=== PATIENT | female | born 1960 | race Caucasian/White ===

== ENCOUNTER 2019-11-22 09:04 | Inpatient (IN) | payer SELFPAY ==
[~2019-11-22] VITALS: Ht 175.3 cm; Wt 121.6 kg
--- NOTE | 2019-11-22 09:23 | PHYS DOC ---
Past History Past Medical History: COPD Smoking: Cigarettes, Less than 1pk/day Adult General Chief Complaint Chief Complaint: DYSPNEA/RESPIRATOY DISTRESS [facility] HPI Patient is a 59 see her old female presented to ER today for evaluation of 2 day history of cough, fever, chills, headache, trouble breathing. She is a smoker, she has history of COPD and hypertension. She is not on any oxygen at home. Patient denies any history of heart disease, no history of diabetes. She denies any abdominal pain, no nausea vomiting. aLL OTHER ros IS NEGATIVE UNLESS OTHERWISE NOTED IN hpi Review of Systems Review of Systems See above Physical Exam Physical Exam See above Constitutional: Well developed, well nourished, no acute distress, non-toxic appearance. [] HENT: Normocephalic, atraumatic, bilateral external ears normal, oropharynx moist, no oral exudates, NASAL NARE WITH CLEAR DISCHARGE, ERYTHEMA. Eyes: PERRLA, EOMI, conjunctiva normal, no discharge. [] Neck: Normal range of motion, no tenderness, supple, no stridor. [] Cardiovascular: Tachycardia, regular rhythm, no murmur [] Lungs & Thorax: DIFFUSE WHEEZING IN ALL LUNG JOSEPH, NO RESPIRATORY DISTRESS. Abdomen: Bowel sounds normal, soft, no tenderness, no masses, no pulsatile masses. [] Skin: Warm, dry, no erythema, no rash. [] Back: No tenderness, no CVA tenderness. [] Extremities: No tenderness, no cyanosis, no clubbing, ROM intact, no edema. [] Neurologic: Alert and oriented X 3, normal motor function, normal sensory function, no focal deficits noted. [] Psychologic: Affect normal, judgement normal, mood normal. [] EKG EKG EKG WAS READ BY THIS PHYSICIAN AT 928, RATE OF 101, SINUS TACHYCARDIA, NO STEMI. [] Radiology/Procedures Radiology/Procedures [][address] [address] IMAGING REPORT Signed PATIENT: VAL RAMIREZ ACCOUNT: [id number] : 1960 LOCATION: ER AGE: 59 SEX: F EXAM STATUS: REG ER ORD. PHYSICIAN: DARIUS ESCOBAR DO REASON: cough, fever, soa PROCEDURE: CHEST PA & LATERAL CHEST PA LATERAL History: Cough, fever, shortness of breath Comparison: None. Findings: Frontal and lateral views of chest were obtained. The cardiomediastinal silhouette is normal. Pulmonary vasculature is normal. The lungs are clear. No pleural effusion or pneumothorax is seen. There is no acute bone abnormality. IMPRESSION: No acute cardiopulmonary process. Electronically signed by: Ian Bradley MD (11/22/2019 9:53 AM) [facility] DICTATED AND SIGNED BY: IAN BRADLEY MD DATE: 11/22/19952 CC: PCP,EDGAR; DARIUS ESCOBAR DO ~ Course & Med Decision Making Course & Med Decision Making Pertinent Labs and Imaging studies reviewed. (See chart for details) Patient is a 59-year-old female who fell and influenza 8, COPD exacerbation. Patient oxygen saturation on room air is 85%. It went up to 93% on 2 L of oxygen. Patient is not on any oxygen at home, SHE IS A smoker. She had no pneumonia, no sepsis. Patient is admitted to hospital due to hypoxia. Dragon Disclaimer Dragon Disclaimer This electronic medical record was generated, in whole or in part, using a voice recognition dictation system. Departure Departure: Impression: Primary Impression: Influenza A Additional Impression: COPD exacerbation Disposition: ADMITTED INPATIENT Admitting Physician: Kota Welsh Condition: STABLE Referrals: PCPEDGAR (PCP) Problem Qualifiers DARIUS ESCOBAR DO Nov 22, 2019 09:23
[2019-11-22] MEDS ORDERED: IV NORMAL SALINE 1,000ML 1,000 ML IV ONE (09:30)
[2019-11-22] MEDS ORDERED: IPRATRPIUM/ALBUTEROL 0.5/2.5MG 3 ML NEBU. NEB ONE ×2 (09:30→10:15)
--- NOTE | 2019-11-22 09:35 | EKG ---
[address] [address] Test Date: 2019-11-22 Test Time: 09:27:47 Pat Name: VAL RAMIREZ Department: Room: Gender: F [employer]: : 1960 Requested By: DARIUS ESCOBAR Order Number: [id number] Reading MD: Measurements Intervals Rose Rate: 101 P: 64 SC: 124 QRS: 44 QRSD: 72 T: 51 QT: 324 QTc: 426 Interpretive Statements SINUS TACHYCARDIA OTHERWISE NORMAL ECG RI6.01 No previous ECG available for comparison
[2019-11-22] MEDS ORDERED: methylPREDNISolone SOD SUCC PF 125 MG/2 ML VIAL. IV ONE (09:45)
[2019-11-22 09:47] LABS: INFLUENZA A PATIENT POSITIVE (NEGATIVE); INFLUENZA B PATIENT NEGATIVE (NEGATIVE)
[2019-11-22 09:53] LABS: BASO % 1 % (0-3); EOS % 0 % (0-3); HEMATOCRIT 44.2 % (36.0-47.0); HEMOGLOBIN 14.6 g/dL (12.0-15.5); LYMPH # 1.2 x10^3/uL (1.0-4.8); LYMPH % 19 % (24-48); MEAN CORPUSCULAR HEMOGLOBIN 28 pg (25-35); MEAN CORPUSCULAR HGB CONC 33 g/dL (31-37); MEAN CORPUSCULAR VOLUME 85 fL (79-100); MONO % 15 % (0-9); NEUT # 4.3 x10^3uL (1.8-7.7); NEUT % 66 % (31-73); PLATELET COUNT 305 x10^3/uL (140-400); RED BLOOD COUNT 5.18 x10^6/uL (3.50-5.40); RED CELL DISTRIBUTION WIDTH 14.5 % (11.5-14.5); WHITE BLOOD COUNT 6.6 x10^3/uL (4.0-11.0)
--- NOTE | 2019-11-22 09:56 | RAD ---
CHEST PA LATERAL History: Cough, fever, shortness of breath Comparison: None. Findings: Frontal and lateral views of chest were obtained. The cardiomediastinal silhouette is normal. Pulmonary vasculature is normal. The lungs are clear. No pleural effusion or pneumothorax is seen. There is no acute bone abnormality. IMPRESSION: No acute cardiopulmonary process. Electronically signed by: Ian Huitron MD (11/22/2019 9:53 AM) [facility]
[2019-11-22 10:03] LABS: CALCIUM 9.5 mg/dL (8.5-10.1); CREATININE 1.1 mg/dL (0.6-1.0); GFR 51.2; POTASSIUM 4.2 mmol/L (3.5-5.1)
[2019-11-22 10:16] LABS: ALBUMIN 3.7 g/dL (3.4-5.0); ALBUMIN/GLOBULIN RATIO 0.8 (1.0-1.7); TOTAL BILIRUBIN 0.3 mg/dL (0.2-1.0); TOTAL PROTEIN 8.6 g/dL (6.4-8.2)
[2019-11-22] MEDS: IV NORMAL SALINE 1,000ML 1,000 ML IV SCH (10:28)
[2019-11-22] MEDS ORDERED: ONDANSETRON PF 4 MG/2 ML VIAL. IV PRN (10:30)
[2019-11-22] MEDS ORDERED: ACETAMINOPHEN 325 MG TABLET PO PRN ×2 (10:30→12:30)
[2019-11-22 11:57] VITALS: BP 115/94
[2019-11-22] MEDS ORDERED: NAPR250T6 PO (12:26)
[2019-11-22] MEDS ORDERED: ESOM20CA PO (12:26)
[2019-11-22] MEDS ORDERED: MELA10CA PO (12:26)
[2019-11-22] MEDS: OSELTAMIVIR 75 MG CAPSULE PO SCH ×2 (12:37→21:32)
[2019-11-22 14:35] VITALS: BP 153/77
[2019-11-22] MEDS: IPRATRPIUM/ALBUTEROL 0.5/2.5MG 3 ML NEBU. NEB SCH ×3 (15:58→20:22)
--- NOTE | 2019-11-22 15:58 | HP ---
ADMIT DATE: 11/22/2019 HISTORY OF PRESENT ILLNESS: The patient is a 59-year-old female patient who came to the Emergency Room complaining of shortness of breath and respiratory distress. She apparently has been having cough, fever, chills, headache, trouble breathing the last 2 days. She has a history of COPD and hypertension. She is not on oxygen at home. She denied any history of heart disease, never been admitted before. She was evaluated in the Emergency Room and was found to be positive for influenza A and acute bronchitis and chronic obstructive pulmonary disease exacerbation. PAST MEDICAL HISTORY: Significant for COPD, hiatal hernia, hypertension, osteoarthritis and questionable right-sided retinal artery occlusion. PAST SURGICAL HISTORY: Significant for total abdominal hysterectomy, bilateral salpingo-oophorectomy, cholecystectomy, and colonoscopy. ALLERGIES: She is allergic to DEMEROL and STADOL. MEDICATIONS: She is currently on following medications: She is on naproxen 250 mg every other day, Nexium 20 mg once a day, melatonin 20 mg at bedtime. FAMILY HISTORY: One sister has brain tumor. Two brothers are healthy. Father is alive at age of 85 and has hypertension. Mother is alive at age of 83 and has hypertension. SOCIAL HISTORY: She is from her . She has 2 daughters and 2 sons. She smokes 5 cigarettes a day. She does not drink alcohol or use recreational drugs. She used to work as a cook. REVIEW OF SYSTEMS: As per history of present illness. PHYSICAL EXAMINATION: GENERAL: On arrival to the Emergency Room, the patient was clearly tachypneic, tachycardic, febrile. VITAL SIGNS: Her heart rate was 115, blood pressure 115/94, temperature was 98.2, respiratory rate was 24, and oxygen saturation was 94% on 3 liters of oxygen. HEAD, EYES, EARS, NOSE AND THROAT: Showed normocephalic, atraumatic. NECK: Supple. HEART: Showed normal first and second heart sounds. No gallop or murmur. CHEST: Her chest was diffuse wheezing in all lung swartz. No crepitation. ABDOMEN: Soft, nontender. NEUROLOGIC: She was alert, oriented x 3 with normal motor, sensory function. Her affect, judgment and mood were normal. DIAGNOSTIC STUDIES: Her EKG showed that she was in sinus tachycardia with a heart rate of 101, no evidence of ST segment elevation myocardial infarction. Chest x-ray showed that the cardiomediastinal silhouette is normal. Pulmonary vasculature is normal. The lungs are clear. No pleural fluid or pneumothorax seen. There are no acute bony abnormalities. LABORATORY DATA: Her lab work showed a serum sodium 139, potassium 4.2, chloride 99, bicarbonate 26, anion gap of 14, BUN 15, creatinine 1.1, estimated GFR was 51 mL per minute. Her glucose was 115. Lactic acid is 1. Calcium was 9.5. Total bilirubin, AST, ALT, alkaline phosphatase were normal. Total protein 8.6, albumin was 3.7. Her white cell count was 6600, hemoglobin 14.6, hematocrit 44, MCV 85 and platelet count of 305,000 with normal manual differential. Her prothrombin time, INR and aPTT are all normal. Her influenza A was positive and her influenza B was negative. ASSESSMENT AND PLAN: In summary, this is a 59-year-old female patient who was admitted with worsening shortness of breath, cough, fever, chills and headache. She was found to be positive for influenza A. She has also COPD exacerbation. She was started on Tamiflu and was continued on nebulized albuterol and Atrovent and steroids. We will monitor her response closely and decide the further management accordingly. DHARMESH PALUA MD DR: KAILEY/lucero JOB#: [id number] / [id number]
[2019-11-22] MEDS ORDERED: NAPROXEN 250 MG TABLET PO PRN (17:45)
[2019-11-22] MEDS ORDERED: ACET-422 PO (18:00)
[2019-11-22 19:19] VITALS: BP 186/73
[2019-11-22 20:48] LABS: ALBUMIN 3.2 g/dL (3.4-5.0); ALBUMIN/GLOBULIN RATIO 0.7 (1.0-1.7); CALCIUM 8.7 mg/dL (8.5-10.1); CREATININE 1.5 mg/dL (0.6-1.0); GFR 35.8; POTASSIUM 4.2 mmol/L (3.5-5.1); TOTAL BILIRUBIN 0.2 mg/dL (0.2-1.0); TOTAL PROTEIN 7.8 g/dL (6.4-8.2)
[2019-11-22] MEDS ORDERED: DIPHENHYDRAMINE PO SCH (21:00)
[2019-11-22] MEDS ORDERED: Melatonin 10 MG PO SCH (21:00)
[2019-11-22] MEDS ORDERED: ACETAMINOPHEN PO SCH (21:00)
[2019-11-22] MEDS: methylPREDNISolone SOD SUCC PF 40 MG/ML VIAL. IV SCH (21:33)
[2019-11-22 22:18] VITALS: BP 153/93
[2019-11-23 05:16] VITALS: BP 186/79
[2019-11-23] MEDS: IPRATRPIUM/ALBUTEROL 0.5/2.5MG 3 ML NEBU. NEB SCH ×4 (05:21→16:43)
[2019-11-23 06:26] LABS: HEMATOCRIT 40.9 % (36.0-47.0); HEMOGLOBIN 13.4 g/dL (12.0-15.5); RED BLOOD COUNT 4.72 x10^6/uL (3.50-5.40); WHITE BLOOD COUNT 6.2 x10^3/uL (4.0-11.0)
[2019-11-23] MEDS: IV NORMAL SALINE 1,000ML 1,000 ML IV SCH (08:25)
[2019-11-23] MEDS: OSELTAMIVIR 75 MG CAPSULE PO SCH (08:26)
[2019-11-23] MEDS: methylPREDNISolone SOD SUCC PF 40 MG/ML VIAL. IV SCH (08:26)
[2019-11-23] MEDS ORDERED: FLU VAX QS 2019-20 (36MOS+)/PF 0.5 ML SYRINGE. VAX IM ONE (09:00)
[2019-11-23] MEDS ORDERED: PANTOPRAZOLE 40 MG TABLET. PO SCH (09:00)
[2019-11-23] MEDS ORDERED: NYSTATIN TOPICAL POWDER 15GM BOTTLE. TP SCH (09:00)
[2019-11-23 11:06] VITALS: BP 158/90
[2019-11-23 15:00] VITALS: BP 152/87
[2019-11-23] MEDS ORDERED: ALBU0.63 NEB (16:20)
[2019-11-23] MEDS ORDERED: OSEL75CA PO (16:20)
[2019-11-23] MEDS ORDERED: PRED20TA PO (16:20)
--- NOTE | 2019-11-24 00:22 | DS ---
DATE OF DISCHARGE: 11/23/2019 HOSPITAL COURSE: The patient is a 59-year-old female patient who was admitted yesterday with recurrent bouts of cough, shortness of breath, fever, chills, headache and trouble breathing for the last 2 days. She is known to have COPD and hypertension and she was extensively evaluated and was diagnosed with influenza A and acute bronchitis and COPD exacerbation. She was started on Tamiflu as well as bronchodilator and steroids. PHYSICAL EXAMINATION: GENERAL: When I saw her today, she looked well. Denied any further episode of cough or phlegm. Denied any chest pain or shortness of breath. When I examined her, she looked pale, but no jaundice, cyanosis or thyromegaly. No jugular venous distension. No lower limb edema. VITAL SIGNS: Her heart rate was 87, blood pressure 152/87, temperature 97.9, respiratory rate 20, and oxygen saturation was 93%. CHEST: Showed central trachea, equal bilateral expansion, air entry, vesicular sounds. No crepitation or rhonchi. ABDOMEN: Scaphoid, soft, nontender. NEUROLOGIC: She was grossly intact. LABORATORY DATA: Her lab work today showed a serum sodium of 137, potassium 4.2, chloride 101, bicarbonate 25, anion gap of 11, BUN 17, creatinine 1.5, estimated GFR was 36 mL per minute. Her glucose 174. Calcium was 8.7. Total bilirubin, AST, ALT, alkaline phosphatase were normal. Total protein 7.8, albumin 3.2. Her prothrombin time was 10.2, INR 1, aPTT was 35. Her white cell count was 6200, hemoglobin 13, hematocrit 41, MCV 87, platelet count ____. Her influenza A was positive, B was negative. DISCHARGE MEDICATIONS: She was discharged home to continue on Tamiflu 75 mg twice a day for 4 more days, albuterol sulfate by nebulizer 4 times a day, prednisone in tapering fashion, acetaminophen/diphenhydramine one tablet at bedtime, Nexium 20 mg once a day, melatonin 20 mg at bedtime, and naproxen 250 mg every other day. FINAL DISCHARGE DIAGNOSES: A. Influenza A. B. Acute bronchitis. C. Chronic obstructive pulmonary disease. D. Hypertension. Dictation Ends Here. DHARMESH PAULA MD DR: KAILEY/lucero JOB#: [id number] / [id number]
== END 2019-11-23 17:20 | disposition home or self-care (01) | DRG 202 ==
LOC: ER 09:04 → 1 SOUTH 11:39
PROVIDERS: ADMIT Internal Medicine; ATTEND Internal Medicine
DX: J20.9 Acute bronchitis, unspecified (principal); J44.0 Chronic obstructive pulmonary disease with (acute) lower respiratory infection; J44.1 Chronic obstructive pulmonary disease with (acute) exacerbation; J10.1 Influenza due to other identified influenza virus with other respiratory manifestations; F17.210 Nicotine dependence, cigarettes, uncomplicated; I10 Essential (primary) hypertension; M19.90 Unspecified osteoarthritis, unspecified site; Z82.49 Family history of ischemic heart disease and other diseases of the circulatory system; Z90.710 Acquired absence of both cervix and uterus; Z90.722 Acquired absence of ovaries, bilateral; Z90.49 Acquired absence of other specified parts of digestive tract; Z88.8 Allergy status to other drugs, medicaments and biological substances; Z88.0 Allergy status to penicillin
CPT/HCPCS: 36415; 71046; 80053; 83605; 83880; 84484; 85025; 85027; 85610; 85730; 87040; 87804; 90471; 90686; 93005; 94640; 96361; 96374; J2920; J2930; J7620; 99285-25; J7030